=== PATIENT | female | born 1955 | race Caucasian/White ===

== ENCOUNTER → 2018-12-06 | Outpatient (CLI) | payer MEDICARE, OTHER | LOC: COL.RAD 08:05 | DX: M50.11 Cervical disc disorder with radiculopathy, high cervical region (principal); M48.02 Spinal stenosis, cervical region ==

== ENCOUNTER → 2019-01-17 | Outpatient (CLI) | payer MEDICARE, OTHER | LOC: MHCPAIN 09:24 | DX: G89.29 Other chronic pain (principal); M54.12 Radiculopathy, cervical region; M47.812 Spondylosis without myelopathy or radiculopathy, cervical region | CPT/HCPCS: G0463 ==

== ENCOUNTER 2021-01-26 07:44 | Outpatient (CLI) | payer MEDICARE, OTHER ==
[~2021-01-26] VITALS: Ht 157.6 cm; Wt 58.4 kg
[2021-01-26] MEDS ORDERED: ASPIRIN 81M81 MG/TA2 PO (08:44)
[2021-01-26] MEDS ORDERED: PLAVIX 75MG TAB75 MG PO (08:45)
[2021-01-26] MEDS ORDERED: LEXAPRO 10MG10 MG PO (08:46)
[2021-01-26] MEDS ORDERED: ALLEGRA ALLERG180 MG PO (08:47)
[2021-01-26] MEDS ORDERED: ZESTRIL 20MG TA20 MG PO (08:48)
[2021-01-26] MEDS ORDERED: NASAREL0.025 MG/1 NAS (08:48)
[2021-01-26] MEDS ORDERED: RECLAST5 MG/100 M IV (08:49)
[2021-01-26] MEDS ORDERED: SYNTHROID0.075 MG/T PO (08:49)
[2021-01-26 09:09] VITALS: BP 164/87; PULSE 54; TEMP 98.6
[2021-01-26 09:13] LABS: HEMATOCRIT 39.7 % (37.0-47.0); HEMOGLOBIN 13.2 g/dl (12.5-16.0); MEAN CELL VOLUME 97 fl (80.0-100.0); MEAN CORPUSCULAR HEMOGLOBIN 32 pg (27.0-31.0); MEAN CORPUSCULAR HGB CONC 33 g/dl (33.0-37.0); MEAN PLATELET VOLUME 9.7 fl (7.4-10.4); PLATELET COUNT 211 K/mm3 (130-400); RED BLOOD COUNT 4.11 M/mm3 (4.10-5.30); REDCELL DISTRIBUTION WIDTH-CV 13.2 % (11.5-14.5)
[2021-01-26 09:23] LABS: PROTHROMBIN TIME 10.6 SECONDS (9.7-12.8)
[2021-01-26 09:26] LABS: CALCIUM 9.1 mg/dL (8.4-10.2); CREATININE, serum 0.69 mg/dL (0.57-1.11); POTASSIUM 4.2 mmol/L (3.5-4.5)
[2021-01-26 10:28] VITALS: BP 158/83; PULSE 52; TEMP 98.6
--- NOTE | 2021-01-26 10:28 | NUR ---
PONCHO complete, report from Devika SHOOK. Jameel SHOOK in with Dr. Garrett inserting Loop Recorder. VSS.
[2021-01-26 10:43] VITALS: BP 148/76; PULSE 58; TEMP 98.6
--- NOTE | 2021-01-26 10:43 | NUR ---
Loop insertin ashely mcwilliams reort from Jameel SHOOK. VSS and Loop site dressing CD&I
[2021-01-26 10:58] VITALS: BP 146/82; PULSE 60; TEMP 98.6
[2021-01-26 11:13] VITALS: BP 155/89; PULSE 58; TEMP 98.6
--- NOTE | 2021-01-26 11:13 | NUR ---
Dr. Garrett in to see pt. Ok to discharge per Dr. Garrett.
[2021-01-26 11:28] VITALS: BP 156/80; PULSE 52; TEMP 98.6
--- NOTE | 2021-01-26 11:28 | NUR ---
INT discontinued intact. Discharge instructions given. Transferred to private car by by Kiarra SHOOK
== END 2021-01-26 11:30 | disposition home or self-care (01) ==
LOC: COL.RAD 07:44
PROVIDERS: Internal Medicine Adult Congenital Heart Disease
DX: I63.9 Cerebral infarction, unspecified (principal)
CPT/HCPCS: J2704